=== PATIENT | male | born 1985 | race Caucasian/White ===

== ENCOUNTER 2021-06-12 12:04 | Inpatient (IN) | payer BC ==
[2021-06-12] MEDS ORDERED: Ondansetron PF 4 MG/2 ML Vial IVP PRN (13:10)
[2021-06-12] MEDS ORDERED: Zolpidem Tartrate 5 MG TAB PO PRN (13:10)
[2021-06-12] MEDS ORDERED: Sodium Chloride 0.65% Nasal 44 ML BOT EA NARE PRN (13:10)
[2021-06-12] MEDS ORDERED: Acetaminophen 325 MG TAB PO PRN (13:10)
[2021-06-12] MEDS ORDERED: Ondansetron ODT 4 MG TAB PO PRN (13:10)
[2021-06-12] MEDS ORDERED: HYDROcodone/Acetaminophen 5/325 mg Tablet PO PRN (13:10)
[2021-06-12] MEDS ORDERED: Calcium Carbonate 500 MG ChewTAB PO PRN (13:10)
[2021-06-12] MEDS ORDERED: Guaifenesin DM 100-10/5 ML UDCUP PO PRN (13:10)
[2021-06-12] MEDS ORDERED: Loperamide HCl 2 MG CAP PO PRN (13:10)
[2021-06-12] MEDS ORDERED: Benzonatate 100 MG CAP PO PRN (13:10)
[2021-06-12] MEDS ORDERED: Bisacodyl 10 MG SUPP PR PRN (13:10)
[2021-06-12] MEDS ORDERED: Loratadine 10 MG TAB PO PRN (13:10)
[2021-06-12 14:19] VITALS: BMI 23.0
[2021-06-12] MEDS ORDERED: Sodium Bicarbonate 2.5 MEQ/5 ML VIAL ONE (14:50)
[2021-06-12] MEDS ORDERED: Fentanyl 100 MCG/2 ML VIAL ONE (14:51)
[2021-06-12] MEDS: Sodium Chloride 0.9% 1,000 ML IV SCH (14:58)
[2021-06-12] MEDS: Vancomycin 1.5 GRAM/300 ML BAG 1.5 GM in Premix Bag 1 BAG IVPB SCH (14:58)
[2021-06-12] MEDS: Ketorolac Tromethamine 30 MG/ML VIAL IVP SCH (18:04)
[2021-06-12] MEDS: Methocarbamol 500 MG TAB PO PRN (18:05)
[2021-06-12] MEDS: HYDROmorphone 2 MG TAB PO PRN (18:35)
[2021-06-12] MEDS: Senokot S 8.6-50 MG TAB PO PRN (18:39)
[2021-06-12 18:49] LABS: Pleural Fluid, Protein 4.1 g/dL
[2021-06-12 20:46] LABS: RBC Count-Automated (BF) 116876 /cu.mm; WBC/Nucleated-Auto (BF) 1796 /cu.mm
[2021-06-12] MEDS: DULoxetine 30 MG CAP PO SCH (21:21)
[2021-06-12] MEDS: Famotidine 20 MG TAB PO SCH (21:21)
[2021-06-12] MEDS: Pregabalin 75 MG CAP PO SCH (21:21)
[2021-06-12] MEDS: Buprenorphine Hcl [Belbuca] 150 MCG Film SL SCH (21:24)
[2021-06-12 21:46] LABS: BF Segmented Neutrophils 56 %; Cell Count Non Hematic 21 %; Eosinophils 7 %; Lymphocytes 16 %
[2021-06-12] MEDS: Cefepime 1 GM in Sodium Chloride 0.9% 100 ML IVPB SCH (22:30)
[2021-06-13] MEDS: Ketorolac Tromethamine 30 MG/ML VIAL IVP SCH ×3 (00:22→11:49)
[2021-06-13] MEDS: Vancomycin 1.5 GRAM/300 ML BAG 1.5 GM in Premix Bag 1 BAG IVPB SCH ×2 (01:14→06:30)
[2021-06-13] MEDS: Sodium Chloride 0.9% 1,000 ML IV SCH (02:30)
[2021-06-13] MEDS: HYDROmorphone 2 MG TAB PO PRN ×2 (06:27→11:47)
[2021-06-13 06:43] LABS: ALT (SGPT) 12 U/L (8-55); AST (SGOT) 14 U/L (5-34); Albumin 3.1 g/dL (3.5-5.0); Alkaline Phosphatase 44 U/L (40-110); Anion Gap 14 mmol/L (10-20); BUN (Urea Nitrogen) 12 mg/dL (8.9-20.6); Bilirubin, Total 0.8 mg/dL (0.2-1.2); Calc. Creatinine Clearance 163 mL/min (70-130); Carbon Dioxide 26 mmol/L (22-29); Chloride 100 mmol/L (98-107); Globulin 2.8 g/dL (2.4-3.5); Glucose 89 mg/dL (70-105); Potassium 4.5 mmol/L (3.5-5.1); Protein, Total 5.9 g/dL (6.0-8.3); Sodium 135 mmol/L (136-145); Vancomycin, Trough 20.6 ug/mL
[2021-06-13 06:48] LABS: #Eosinphils 0.4 thou/uL (0.0-0.7); #Lymphocytes 1.3 thou/uL (1.20-3.40); #Monocytes 1.3 thou/uL (0.11-0.59); #Neutrophils 9.2 thou/uL (1.40-6.50); %Eosinophils 2.9 % (0.0-10.0); %Lymphocytes 10.4 % (21.0-51.0); %Neutrophils 75.7 % (42.0-75.0); Hemoglobin 12.3 g/dL (14.0-18.0); Mean Corpuscular HGB CONC 32.4 g/dL (32.0-36.0); Mean Corpuscular Hemoglobin 30.6 pg (27.0-31.0); Mean Corpuscular Volume 94.4 fL (78.0-98.0); Mean Platelet Volume 6.4 fL (7.4-10.4); Platelet Count 299 thou/uL (130-400); RBC Distribution Width 11.9 % (11.5-14.5); Red Blood Cell (RBC) Count 4.03 mill/uL (4.70-6.10); White Blood Cell (WBC) Count 12.2 thou/uL (4.8-10.8)
[2021-06-13 07:07] LABS: BF Color Red; Body Fluid Source Thoracentesis Fluid; Clarity Cloudy/Turbid (Clear); Tube # EDTA
[2021-06-13] MEDS: Pregabalin 75 MG CAP PO SCH (08:10)
[2021-06-13] MEDS: DULoxetine 30 MG CAP PO SCH (08:10)
[2021-06-13 08:11] VITALS: TEMP 98.7
[2021-06-13] MEDS: Famotidine 20 MG TAB PO SCH (08:11)
[2021-06-13] MEDS: Cefepime 1 GM in Sodium Chloride 0.9% 100 ML IVPB SCH (08:12)
[2021-06-13] MEDS: Senokot S 8.6-50 MG TAB PO PRN (08:40)
[2021-06-13] MEDS: Methocarbamol 500 MG TAB PO PRN (08:40)
[2021-06-13] MEDS: Buprenorphine Hcl [Belbuca] 150 MCG Film SL SCH (08:41)
[2021-06-13] MEDS ORDERED: VANCOMYCIN 1.25 GM/250 ML BAG 1.25 GM in Premix Bag 1 BAG IVPB SCH (09:00)
[2021-06-13] MEDS ORDERED: FLU VACC QS2021-22(6MOS UP)/PF 60 MCG/0.5 ML SYRINGE IM ONE (09:00)
[2021-06-13] MEDS ORDERED: Enoxaparin Sodium 40 MG/0.4 ML SYRINGE SC SCH (09:00)
[2021-06-13 13:25] VITALS: BP 132/87
[2021-06-15 14:40] LABS: Fungus Stain Final report (.)
== END 2021-06-13 13:25 | disposition home or self-care (01) | DRG 186 ==
LOC: T4-A 12:50
PROVIDERS: ADMIT Student in an Organized Health Care Education/Training Program; ATTEND Internal Medicine
PROC: 0W9B3ZZ Drainage of Left Pleural Cavity, Percutaneous Approach (ICD-10-PCS; principal; 2021-06-12)
DX: J94.2 Hemothorax (principal); J18.9 Pneumonia, unspecified organism; G89.29 Other chronic pain; M54.9 Dorsalgia, unspecified; F17.210 Nicotine dependence, cigarettes, uncomplicated; F12.10 Cannabis abuse, uncomplicated; Z28.21 Immunization not carried out because of patient refusal; Z98.890 Other specified postprocedural states; Z79.899 Other long term (current) drug therapy
CPT/HCPCS: 36415; 71045; 71250; 77002; 80053; 80202; 82150; 82945; 83615; 83986; 84157; 85025; 85060; 87070; 87116; 87205; 87206; 88112; 88305; 89051; J0692; J1885; J3010; J3370; J3490; J7050